=== PATIENT | female | born 1960 | race Hispanic/Latino ===

== ENCOUNTER 2018-10-12 07:59 | Day surgery (SDC) | payer BC ==
[2018-10-06 08:30] VITALS: BMI 28.8
[2018-10-12] MEDS ORDERED: Sodium Chloride 0.9% 1,000 ML IV SCH (08:45)
[2018-10-12] MEDS ORDERED: Propofol 10 mg/ml Inj (20 ML) ONE (09:49)
[2018-10-12 12:12] VITALS: BP 117/73; PULSE 62; RESP 16; TEMP 97.2; O2SAT 100
== END 2018-10-12 12:05 | disposition home or self-care (01) ==
LOC: ENDO 07:59
PROVIDERS: ATTEND Specialist
DX: Z12.11 Encounter for screening for malignant neoplasm of colon (principal); K63.5 Polyp of colon; K57.30 Diverticulosis of large intestine without perforation or abscess without bleeding; K64.8 Other hemorrhoids
CPT/HCPCS: 45380; 82948; 88305; J2001; J2704; J7030; J7040